=== PATIENT | male | born 1990 | race Caucasian/White ===

== ENCOUNTER 2017-04-05 04:34 | Emergency (ER) | payer SELFPAY ==
[~2017-04-05] VITALS: Ht 182.9 cm; Wt 78.0 kg
[~2017-04-05 04:34] MED LIST: AMOX500T PO
[2017-04-05 04:37] VITALS: BP 122/80; PULSE 78; RESP 16; TEMP 98.6; O2SAT 97
[2017-04-05] MEDS ORDERED: SODIUM CHLORIDE 0.9% FLUSH 10 ML FLUSH IVF PRN (04:45)
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
== END 2017-04-05 06:25 | disposition left against medical advice (07) ==
LOC: NEPC 04:34
DX: S02.2XXA Fracture of nasal bones, initial encounter for closed fracture (principal); M25.561 Pain in right knee; W22.8XXA Striking against or struck by other objects, initial encounter
CPT/HCPCS: 70450; 70486; 73564; 99285